=== PATIENT | female | born 1985 | race Caucasian/White ===

== ENCOUNTER 2022-01-25 19:13 | Inpatient (IN) ==
[2022-01-25 17:11] LABS: Basophils % 0.2 %; Eosinophils % 0.3 %; Hematocrit 30.3 % (35.3-44.9); Hemoglobin 9.9 g/dL (11.5-15.4); Immature Granulocytes % 0.8 % (0-4); Lymphocytes # 0.5 K/mcL (0.6-4.6); Lymphocytes % 5.4 %; Mean Corpuscular HGB Conc 32.7 g/dL (31.6-35.5); Mean Corpuscular Hemoglobin 28.5 pg (28.0-33.3); Mean Corpuscular Volume 87.3 fL (83.0-100.0); Mean Platelet Volume 10.3 fL (9.4-12.4); Monocytes # 0.6 K/mcL (0.0-1.3); Monocytes % 6.9 %; Neutrophils # 7.6 K/mcL (1.6-8.9); Platelet Count 254 K/mcL (140-400); Red Blood Count 3.47 M/mcL (3.82-4.97); Red Cell Distribution Width 13.7 % (11.5-14.5); Segmented Neutrophils % 86.4 %; White Blood Count 8.8 K/mcL (4.3-11.1)
[2022-01-25 17:14] LABS: Creatinine,Urine 137 mg/dL; Protein/Creatinine Ratio,Urine 0.58 mg/mg (0.00-0.20)
[2022-01-25 17:19] LABS: Alanine Aminotransferase 15 Units/L (7-52); Aspartate Amino Transferase 18 Units/L (13-39); BUN/Creatinine Ratio 19 (6-26); Blood Urea Nitrogen 11 mg/dL (6-20); Lactate Dehydrogenase 272 Units/L (140-271); Uric Acid 4.6 mg/dL (2.3-7.6); eGFR For African Americans > 60 (> 60); eGFR For Non-African Americans > 60 (> 60)
[~2022-01-25 19:13] MED LIST: *HR* Labetalol 20 MG/4 ML SYRINGE IVP PRN; *HR* Nalbuphine 10 MG/ML AMPUL IV PRN; Azithromycin 500 MG in 0.9 % Sodium Chloride 250 ML IVPB PRN; Famotidine 20 MG/2 ML VIAL IVP PRN; Lidocaine 1% 20 ML MDV INFILT PRN; Metoclopramide 10 MG/2 ML VIAL IVP PRN; Naloxone 0.4 MG/ML INJ IVP PRN; Ondansetron 4 MG/2 ML VIAL IVP PRN
[2022-01-25] MEDS ORDERED: Ringers Solution, Lactated 1,000 ML IVC SCH (19:15)
[2022-01-25] MEDS ORDERED: Calcium Gluconate 1,000 MG/10 ML VIAL IVP PRN (20:06)
[2022-01-25] MEDS ORDERED: Magnesium Sulf 20 gm/SW 500mL 4 GM/100 ML BAG IV ONE (20:07)
[2022-01-25] MEDS ORDERED: Magnesium Sulf 20 gm/SW 500mL 20 GM/500 ML IV.SOLN IVC SCH (20:15)
[2022-01-25 20:55] LABS: Glucose 101 mg/dL (70-105)
[2022-01-25] MEDS ORDERED: Oxytocin 30 UNIT/503 ML BAG IVC SCH (21:30)
[2022-01-25] MEDS ORDERED: Penicillin G Potassium 5,000,000 UNIT in 0.9 % Sodium Chloride Mini Bag 100 ML IVPB ONE (21:58)
[2022-01-26 00:01] LABS: Amphetamine Screen,Urine Negative ng/mL (Cutoff=1000); Barbiturate Screen,Urine Negative ng/mL (Cutoff=200); Benzodiazepines Screen,Urine Negative ng/mL (Cutoff=200); Cannabinoid Screen,Urine Negative ng/mL (Cutoff = 50); Cocaine Screen,Urine Negative ng/mL (Cutoff= 300); Opiate Screen,Urine Negative ng/mL (Cutoff=300); Phencyclidine Screen,Urine Negative ng/mL (Cutoff=25)
[2022-01-26] MEDS ORDERED: Acetaminophen 325 MG TABLET PO PRN ×2 (02:27→13:05)
[2022-01-26] MEDS: Penicillin G Potassium 2,500,000 UNIT/105 ML MLS IVPB SCH ×2 (02:28→06:30)
[2022-01-26] MEDS ORDERED: Ropivacaine/PF 0.2% 20 ML VIAL ONE (07:30)
[2022-01-26] MEDS ORDERED: *HR* FentaNYL (PF) 100 MCG/2 ML VIAL ONE ×2 (07:30→08:37)
[2022-01-26] MEDS ORDERED: Epidural Premix (fent/bupiv) 110 ML EP ONE (07:31)
[2022-01-26] MEDS ORDERED: *HR* FentaNYL (PF) 100 MCG/2 ML VIAL EP ONE (08:21)
[2022-01-26] MEDS ORDERED: Ropivacaine/PF 0.2% 20 ML VIAL EP ONE (08:21)
[2022-01-26] MEDS ORDERED: EPHEDrine 50 MG/ML VIAL IVP PRN (08:21)
[2022-01-26] MEDS ORDERED: Epidural Premix (fent/bupiv) 110 ML EP SCH (08:30)
[2022-01-26] MEDS ORDERED: Lidocaine/EPI 1:200k 2% PF 20 ML VIAL ONE (08:37)
[2022-01-26] MEDS ORDERED: Oxytocin 30 UNIT/503 ML BAG IVC SCH (13:05)
[2022-01-26] MEDS ORDERED: Ondansetron ODT 4 MG TAB.RAPDIS SL PRN (13:05)
[2022-01-26] MEDS ORDERED: Measles/Mumps/Rubella Vacc 0.5 ML VIAL SQ PRN (13:05)
[2022-01-26] MEDS ORDERED: Lanolin 7 G OINT...G. TP PRN (13:05)
[2022-01-26] MEDS ORDERED: Benzocaine/Menthol 56 GM AEROSOL SPRAY TP PRN (13:05)
[2022-01-26] MEDS ORDERED: Rho Immune Globulin 1,500 UNIT SYRINGE IM PRN (13:05)
[2022-01-26] MEDS: Ibuprofen 600 MG TABLET PO SCH ×2 (13:36→21:09)
[2022-01-26] MEDS: Acetaminophen 325 MG TABLET PO SCH ×2 (13:36→19:44)
[2022-01-26] MEDS: Magnesium Sulf 20 gm/SW 500mL 20 GM/500 ML IV.SOLN IVC SCH (16:49)
[2022-01-26] MEDS ORDERED: Ringer's Solution, Lactated 250 ML IV.SOLN IVC SCH (17:00)
[2022-01-26] MEDS: Ringers Solution, Lactated 1,000 ML IVC SCH (17:50)
[2022-01-27] MEDS: Ringers Solution, Lactated 1,000 ML IVC SCH (01:00)
[2022-01-27] MEDS: Magnesium Sulf 20 gm/SW 500mL 20 GM/500 ML IV.SOLN IVC SCH (02:45)
[2022-01-27] MEDS: Ibuprofen 600 MG TABLET PO SCH ×4 (02:53→21:44)
[2022-01-27] MEDS: Acetaminophen 325 MG TABLET PO SCH ×4 (02:53→21:47)
[2022-01-27 04:47] LABS: Basophils % 0.1 %; Eosinophils % 0.1 %; Hematocrit 26.3 % (35.3-44.9); Immature Granulocytes % 0.9 % (0-4); Lymphocytes # 0.2 K/mcL (0.6-4.6); Lymphocytes % 2.1 %; Mean Corpuscular HGB Conc 30.8 g/dL (31.6-35.5); Mean Corpuscular Hemoglobin 28.2 pg (28.0-33.3); Mean Corpuscular Volume 91.6 fL (83.0-100.0); Mean Platelet Volume 10.8 fL (9.4-12.4); Monocytes # 0.2 K/mcL (0.0-1.3); Monocytes % 2.2 %; Platelet Count 179 K/mcL (140-400); Red Blood Count 2.87 M/mcL (3.82-4.97); Segmented Neutrophils % 94.6 %; White Blood Count 10.5 K/mcL (4.3-11.1)
[2022-01-27 04:49] LABS: Hemoglobin 8.1 g/dL (11.5-15.4); Neutrophils # 9.9 K/mcL (1.6-8.9)
[2022-01-27] MEDS: Prenatal Vit/FA 1 EACH TABLET PO SCH (08:01)
[2022-01-27] MEDS ORDERED: NIFEdipine XL (24 HR) 30 MG TAB.ER.24 PO SCH (09:00)
[2022-01-28] MEDS: Acetaminophen 325 MG TABLET PO SCH ×2 (06:38→19:49)
[2022-01-28] MEDS: Ibuprofen 600 MG TABLET PO SCH ×2 (06:38→19:49)
[2022-01-28] MEDS: Prenatal Vit/FA 1 EACH TABLET PO SCH (09:03)
[2022-01-28] MEDS: NIFEdipine XL (24 HR) 60 MG TAB.ER.24 PO SCH (09:03)
[2022-01-29] MEDS: Acetaminophen 325 MG TABLET PO SCH (02:04)
[2022-01-29] MEDS: Ibuprofen 600 MG TABLET PO SCH (02:04)
[2022-01-29 03:57] VITALS: O2SAT 97
[2022-01-29] MEDS: NIFEdipine XL (24 HR) 60 MG TAB.ER.24 PO SCH (08:10)
[2022-01-29] MEDS: Prenatal Vit/FA 1 EACH TABLET PO SCH (08:10)
[2022-01-29 08:16] VITALS: BP 150/87; PULSE 90; TEMP 98
== END 2022-01-29 10:50 | disposition home or self-care (01) | DRG 806 ==
LOC: 1NENULAB → 1NENUOBS 01-26 12:43
PROVIDERS: ADMIT Advanced Practice Midwife; ATTEND Advanced Practice Midwife